=== PATIENT | female | born 1995 | race Caucasian/White ===

== ENCOUNTER 2019-06-10 23:29 | Emergency (ER) | payer OTHER ==
[~2019-06-10] VITALS: Ht 152.4 cm; Wt 103.0 kg
[~2019-06-10 23:29] MED LIST: AMOXICILLIN875 MG; BACTRIM DS TAB1 EACH PO; HYDROXYZINE PAM25 MG PO; NITROFURANTOIN100 MG PO; PROMETHAZINE HC25 M1 PO; RANITIDINE HCL75 MG PO; TRAZODONE HCL100 MG PO
--- OUTSIDE RECORDS SUMMARY | 2019-06-10 23:32 | XMS ---
PreManage Notification: CAMMIE PETERSEN Security Wharf Tally Clerk Events No recent Security Events currently on file CRITERIA MET - Group Notification - 6 ED Visits in 6 Months - [facility] - Has Care Guidelines - [facility] - 2 Visits in 30 Days CARE PROVIDERS HÉCTOR MENDOSA Counselor: Mental Health Current PHONE: [phone] INDY CLEMENS Counselor: Mental Health 09/13/2018-Current PHONE: [phone] COBY RODRIGUEZ Psychiatry \T\ Neurology: Psychiatry Current PHONE: Unknown Merced Flores Counselor: Mental Health 05/26/2017-Current PHONE: [phone] JESSICA Marin [facility] 01/18/2018-Current PHONE: Unknown MICHELLE BRADY Primary Care [facility] PHONE: Unknown [facility] Primary Care [facility] HEALTH PHONE: Unknown HÉCTOR MENDOSA Primary Care Current PHONE: Unknown Faizan Fernandez or Director Diabetes Current PHONE: [phone] COBY RODRIGUEZ Primary Care Current PHONE: Unknown JESSICA [facility] 01/18/2018-Current PHONE: Unknown Jeremy Shaver Primary Care Current PHONE: Unknown Merced Flores Primary Care 05/26/2017-Current PHONE: [phone] Guidelines Source: [facility] Wellness Guidelines Date: 09/15/2018 Care Recommendation: Client has a diagnosis of Borderline Personality Disorder, Major Depressive Disorder, with psychotic features, and PTSD. She reports that being locked in a room escalates her symptoms when she is already anxious and overwhelmed.\T\nbsp; She reports that she is not a risk to herself or others if she is in the hospital setting, as that is where she feels the most safe when in crisis or in need of medical care.\T\nbsp; She reports that it is helpful to be patient with her, slow down and communicate each step of the process.\T\nbsp; Care Coordination: She would like [facility] staff at [phone] and her sister Stefanie Walsh at [phone] and her mom: Yenifer Cain at [phone] Pain Management: She can not think of anything medication hernadez that is helpful or could be helpful for pain management. Heat and Ice can be helpful for pain management depending on the need.\T\nbsp; Care History Social 06/01/2018 [facility] Cammie is estranged from her and lost custody of her daughter whom she has not seen in a long time.\T\nbsp; Sadness around this has caused her to present to the ED feeling suicidal. Behavioral 06/01/2018 [facility] Presented to ED on crisis 7 times in 8 months.\T\nbsp; Hospitalized at least 2 of those times Frequent suicidal ideation and gestures E.D. VISIT COUNT (12 MO.) [address] TOTAL 10 NOTE: Visits indicate total known visits. ED/UCC VISIT TRACKING (12 MO.) 06/10/2019 23:30 [facility] [place] TYPE: Emergency COMPLAINT: - MEDICATION ISSUE 06/03/2019 03:22 [facility] [place] TYPE: Emergency COMPLAINT: - DIFFICULTY BREATHING DIAGNOSES: - Other sales promotion officer (current) drug therapy - Dyspnea, unspecified - Major depressive disorder, single episode, unspecified - Allergy status to other antibiotic agents status - Shortness of breath 05/27/2019 19:14 [facility] [place] TYPE: Emergency COMPLAINT: - URINE PROBLEM DIAGNOSES: - Dysuria - Cough - Allergy status to other antibiotic agents status - Urinary tract infection, site not specified 04/10/2019 22:20 [facility] [place] TYPE: Emergency DIAGNOSES: - Acute cystitis without hematuria - LUNG AND KIDNEY PAIN 03/12/2019 12:28 [facility] [place] TYPE: Emergency DIAGNOSES: - Cellulitis of face - eye infection [facility]2019 [facility] DIAGNOSES: - Noninfective gastroenteritis and colitis, unspecified - Fever (9 Weeks To 74 Years) 09/30/2018 18:24 [facility] [place] TYPE: Emergency DIAGNOSES: - Ankle Pain - Pain in right ankle and joints of right foot - Other chronic pain - Headache (Adult - New Onset Or New Symptoms) 09/22/2018 19:18 [facility] [place] TYPE: Emergency DIAGNOSES: - Suicidal Thoughts - Suicidal ideations 09/13/2018 13:21 [facility] [place] TYPE: Emergency DIAGNOSES: - Pruritis - Rash and other nonspecific skin eruption - itchy and achey - Generalized Body Aches 06/13/2018 18:16 [facility] [place] TYPE: Emergency DIAGNOSES: - Skin Lesion - Cellulitis of chest wall - Spider Bite INPATIENT VISIT TRACKING (12 MO.) No inpatient visits to display in this time frame [email or web address]
[2019-06-10] MEDS ORDERED: LEXAPRO10 MG PO (23:50)
[2019-06-10] MEDS ORDERED: OMEPRAZOLE20 MG PO (23:51)
== END 2019-06-11 00:46 | disposition home or self-care (01) ==
LOC: ED 23:29
DX: F32.9 Major depressive disorder, single episode, unspecified (principal); F41.9 Anxiety disorder, unspecified; Z88.1 Allergy status to other antibiotic agents; Z79.899 Other long term (current) drug therapy
CPT/HCPCS: 99283

== ENCOUNTER 2019-06-14 15:47 | Emergency (ER) | payer OTHER ==
[~2019-06-14] VITALS: Ht 152.4 cm; Wt 103.0 kg
[~2019-06-14 15:47] MED LIST changes: +LEXAPRO10 MG PO; +OMEPRAZOLE20 MG PO
--- OUTSIDE RECORDS SUMMARY | 2019-06-14 15:52 | XMS ---
PreManage Notification: CAMMIE PETERSEN Security Food Services Coordinator Events No recent Security Events currently on file CRITERIA MET - 6 ED Visits in 6 Months - [facility] - Has Care Guidelines - [facility] - 2 Visits in 30 Days CARE PROVIDERS HÉCTOR MENDOSA Counselor: Mental Health Current PHONE: [phone] LYLA VILLATORO Nurse Practitioner: Family 06/12/2019-Current PHONE: Unknown INDY CLEMENS Counselor: Mental Health 09/13/2018-Current PHONE: [phone] COBY RODRIGUEZ Psychiatry \T\ Neurology: Psychiatry Current PHONE: Unknown Merced Flores Counselor: Mental Health 05/26/2017-Current PHONE: [phone] JESSICA Marin [facility] 01/18/2018-Current PHONE: Unknown MICHELLE COLON [facility] PHONE: Unknown [facility] Primary Care [facility] PHONE: Unknown HÉCTOR MENDOSA [facility] Current PHONE: Unknown Faizan Fernandez or Marketing And Communications Officer Current PHONE: [phone] JESSICA [facility] 01/18/2018-Current PHONE: Unknown Jeremy Shaver Primary Care Current PHONE: Unknown Merced Flores Primary Care 05/26/2017-Current PHONE: [phone] Guidelines Source: [facility] Wellness Guidelines Date: 09/15/2018 Care Recommendation: Client [...] the process.\T\nbsp; Care Coordination: She would like [facility] staff at [phone] and her sister Stefanie Walsh at [phone] and her mom: Yenifer Cain at [phone] Pain Management: She can not think of anything medication hernadez that is helpful or could be helpful for pain management. Heat and Ice can be helpful for pain management depending on the need.\T\nbsp; Care History Behavioral 06/01/2018 [facility] Presented to ED on crisis 7 times in 8 months.\T\nbsp; Hospitalized at least 2 of those times Frequent suicidal ideation and gestures Social 06/01/2018 [facility] Cammie is estranged from her and lost custody of her daughter whom she has not seen in a long time.\T\nbsp; Sadness around this has caused her to present to the ED feeling suicidal. Natalya. VISIT COUNT (12 MO.) [address] TOTAL 10 NOTE: Visits indicate total known visits. ED/UCC VISIT TRACKING (12 MO.) 06/14/2019 15:49 [facility] [place] TYPE: Emergency COMPLAINT: - HEAD INJURY 06/10/2019 23:30 [facility] [place] TYPE: Emergency COMPLAINT: - MEDICATION ISSUE DIAGNOSES: - Anxiety disorder, unspecified - Allergy status to other antibiotic agents status - Other terminal operations supervisor (current) drug therapy - Major depressive disorder, single episode, unspecified 06/03/2019 03:22 [facility] [place] TYPE: Emergency COMPLAINT: - DIFFICULTY BREATHING DIAGNOSES: - Other alf (current) drug therapy - Dyspnea, unspecified - Major depressive disorder, single episode, unspecified - Allergy status to other antibiotic agents status - Shortness of breath 05/27/2019 19:14 [facility] [place] TYPE: Emergency COMPLAINT: - URINE PROBLEM DIAGNOSES: - Dysuria - Cough - Allergy status to other antibiotic agents status - Urinary tract infection, site not specified 04/10/2019 22:20 [facility] [place] TYPE: Emergency DIAGNOSES: - Acute cystitis without hematuria - LUNG AND KIDNEY PAIN 03/12/2019 12:28 [facility] [employer] [employer] [place] TYPE: Emergency DIAGNOSES: - Cellulitis of face - eye infection 01/28/2019 15:52 [facility] [employer] [place] TYPE: Emergency DIAGNOSES: - Noninfective gastroenteritis and colitis, unspecified - Fever (9 Weeks To 74 Years) 09/30/2018 18:24 [facility] [employer] [place] TYPE: Emergency DIAGNOSES: - Ankle Pain - Pain in right ankle and joints of right foot - Other chronic pain - Headache (Adult - New Onset Or New Symptoms) 09/22/2018 19:18 [facility] [employer] [place] TYPE: Emergency DIAGNOSES: - Suicidal Thoughts - Suicidal ideations 09/13/2018 13:21 [facility] [employer] [place] TYPE: Emergency DIAGNOSES: - Pruritis - Rash and other nonspecific skin eruption - itchy and achey - Generalized Body Aches INPATIENT VISIT TRACKING (12 MO.) No inpatient visits to display in this time frame [id number]
[2019-06-14] MEDS ORDERED: CYCLOBENZAPRINE10 MG PO (16:51)
== END 2019-06-14 17:03 | disposition home or self-care (01) ==
LOC: ED 15:47
DX: S06.0X1A Concussion with loss of consciousness of 30 minutes or less, initial encounter (principal); S16.1XXA Strain of muscle, fascia and tendon at neck level, initial encounter; V43.52XA Car driver injured in collision with other type car in traffic accident, initial encounter; F41.9 Anxiety disorder, unspecified; F43.10 Post-traumatic stress disorder, unspecified; Z88.1 Allergy status to other antibiotic agents; Z79.899 Other long term (current) drug therapy
CPT/HCPCS: 99283

== ENCOUNTER 2019-06-16 17:15 | Emergency (ER) | payer OTHER ==
[~2019-06-16] VITALS: Ht 152.4 cm; Wt 103.0 kg
[~2019-06-16 17:15] MED LIST changes: +CYCLOBENZAPRINE10 MG PO
--- OUTSIDE RECORDS SUMMARY | 2019-06-16 17:18 | XMS ---
PreManage Notification: CAMMIE PETERSEN Security Customer Service Specialist Events No recent Security Events currently on file CRITERIA MET - Group Notification - 6 ED Visits in 6 Months - [facility] - Has Care Guidelines - [facility] - 2 Visits in 30 Days CARE PROVIDERS HÉCTOR MENDOSA Counselor: Mental Health Current PHONE: [phone] LYLA VILLATORO Nurse Practitioner: Family 06/12/2019-Current PHONE: Unknown INDY CLEMENS Counselor: Mental Health 09/13/2018-Current PHONE: [phone] COBY RODRIGUEZ Psychiatry \T\ Neurology: Psychiatry Current PHONE: Unknown Merced Flores Counselor: Mental Health 05/26/2017-Current PHONE: [phone] JESSICA Marin [facility] 01/18/2018-Current PHONE: Unknown MICHELLE OBRIEN [facility] PHONE: Unknown [facility] Primary [facility] PHONE: Unknown HÉCTOR MENDOSA [facility] Current PHONE: Unknown Faizan Fernandez or Desk Pen Set Assembler Current PHONE: [phone] JESSICA [facility] 01/18/2018-Current PHONE: Unknown Jeremy Shaver Primary Care Current PHONE: Unknown Merced Flores Primary Care 05/26/2017-Current PHONE: [phone] Guidelines Source: [facility] Wellness Guidelines Date: 09/15/2018 Care Recommendation: Client [...] the process.\T\nbsp; Care Coordination: She would like [facility] staff at [phone] and her sister Stefanie Walsh at [phone] and her mom: Yenifer Cain at [phone] Pain Management: She can not think of anything medication hernadez that is helpful or could be helpful for pain management. Heat and Ice can be helpful for pain management depending on the need.\T\nbsp; Care History Behavioral 06/15/2019 [facility] PLEASE RUN A DRUG SCREEN IF PATIENT PRESENTS TO ED AGAIN 06/01/2018 [facility] Presented to ED on crisis 7 times in 8 months.\T\nbsp; Hospitalized at least 2 of those times Frequent suicidal ideation and gestures Social 06/01/2018 [facility] Cammie is estranged from her and lost custody of her daughter whom she has not seen in a long time.\T\nbsp; Sadness around this has caused her to present to the ED feeling suicidal. E.D. VISIT COUNT (12 MO.) 5 [facility] 1 [facility] 5 [facility] TOTAL 11 NOTE: Visits indicate total known visits. ED/UCC VISIT TRACKING (12 MO.) 06/16/2019 17:16 [facility] [place] TYPE: Emergency COMPLAINT: - FOLLOWUP- HEAD INJURY 06/14/2019 15:49 [facility] [place] TYPE: Emergency COMPLAINT: - HEAD INJURY 06/10/2019 23:30 [facility] [place] TYPE: Emergency COMPLAINT: - MEDICATION ISSUE DIAGNOSES: - Anxiety disorder, unspecified - Allergy status to other antibiotic agents status - Other jail (current) drug therapy - Major depressive disorder, single episode, unspecified 06/03/2019 03:22 [facility] [place] TYPE: Emergency COMPLAINT: - DIFFICULTY BREATHING DIAGNOSES: - Other jail (current) drug therapy - Dyspnea, unspecified - Major depressive disorder, single episode, unspecified - Allergy status to other antibiotic agents status - Shortness of breath 05/27/2019 19:14 [facility] [place] TYPE: Emergency COMPLAINT: - URINE PROBLEM DIAGNOSES: - Dysuria - Cough - Allergy status to other antibiotic agents status - Urinary tract infection, site not specified 04/10/2019 22:20 [facility] [place] TYPE: Emergency DIAGNOSES: - Acute cystitis without hematuria - LUNG AND KIDNEY PAIN 03/12/2019 12:28 [facility] [place] TYPE: Emergency DIAGNOSES: - Cellulitis of face - eye infection 01/28/2019 15:52 [facility] [place] TYPE: Emergency DIAGNOSES: - Noninfective gastroenteritis and colitis, unspecified - Fever (9 Weeks To 74 Years) 09/30/2018 18:24 [facility] [place] TYPE: Emergency DIAGNOSES: - Ankle Pain - Pain in right ankle and joints of right foot - Other chronic pain - Headache (Adult - New Onset Or New Symptoms) 09/22/2018 19:18 [facility] [place] TYPE: Emergency DIAGNOSES: - Suicidal Thoughts - Suicidal ideations 09/13/2018 13:21 [facility] [place] TYPE: Emergency DIAGNOSES: - Pruritis - Rash and other nonspecific skin eruption - itchy and achey - Generalized Body Aches INPATIENT VISIT TRACKING (12 MO.) No inpatient visits to display in this time frame [email or web address]
== END 2019-06-16 22:29 | disposition home or self-care (01) ==
LOC: ED 17:15
DX: S06.0X0D Concussion without loss of consciousness, subsequent encounter (principal); F32.9 Major depressive disorder, single episode, unspecified; F41.9 Anxiety disorder, unspecified; Z79.899 Other long term (current) drug therapy
CPT/HCPCS: 70450; 99284-25

== ENCOUNTER 2019-08-11 20:34 | Emergency (ER) | payer OTHER ==
[~2019-08-11] VITALS: Ht 152.4 cm; Wt 103.0 kg
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
== END 2019-08-12 00:09 | disposition home or self-care (01) ==
LOC: ED 20:34
DX: J06.9 Acute upper respiratory infection, unspecified (principal); F99 Mental disorder, not otherwise specified; F32.9 Major depressive disorder, single episode, unspecified; F41.9 Anxiety disorder, unspecified; Z88.1 Allergy status to other antibiotic agents; Z79.899 Other long term (current) drug therapy
CPT/HCPCS: 80053; 80176; 81001; 84443; 84703; 85025; 99285; G0480

== ENCOUNTER 2020-05-11 17:06 | Emergency (ER) | payer MEDICAID ==
[~2020-05-11] VITALS: Ht 152.4 cm; Wt 104.3 kg
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
[2020-05-11] MEDS ORDERED: CAPZASIN-HP42.5 GM TOP (17:21)
[2020-05-11] MEDS ORDERED: PRAZOSIN HCL2 MG PO (17:21)
[2020-05-11] MEDS ORDERED: VENLAFAXINE HC150 M1 PO (17:21)
[2020-05-11] MEDS ORDERED: PRENATAL TABLE1 EAC1 PO (17:22)
== END 2020-05-11 18:45 | disposition home or self-care (01) ==
LOC: ED 17:06
DX: O9A.211 Injury, poisoning and certain other consequences of external causes complicating pregnancy, first trimester (principal); S00.86XA Insect bite (nonvenomous) of other part of head, initial encounter; O99.341 Other mental disorders complicating pregnancy, first trimester; F31.9 Bipolar disorder, unspecified; F41.9 Anxiety disorder, unspecified; F43.10 Post-traumatic stress disorder, unspecified; F20.9 Schizophrenia, unspecified; Z88.1 Allergy status to other antibiotic agents; Z79.899 Other long term (current) drug therapy; W57.XXXA Bitten or stung by nonvenomous insect and other nonvenomous arthropods, initial encounter; Z3A.14 14 weeks gestation of pregnancy
CPT/HCPCS: 99282

== ENCOUNTER 2021-01-03 23:03 | Emergency (ER) | payer OTHER ==
[~2021-01-03] VITALS: Ht 152.4 cm; Wt 85.3 kg
[~2021-01-03 23:03] MED LIST changes: +CAPZASIN-HP42.5 GM TOP; +PRAZOSIN HCL2 MG PO; +PRENATAL TABLE1 EAC1 PO; +VENLAFAXINE HC150 M1 PO
--- OUTSIDE RECORDS SUMMARY | 2021-01-03 23:06 | XMS ---
PreManage Notification: CAMMIE PETERSEN Security Case Sealer Events No recent Security Events currently on file CRITERIA MET - [facility] [place] CARE PROVIDERS LYLA VILLATORO Nurse Practitioner: Family 06/12/2019-Current PHONE: Unknown CARO SOLOMON Nurse Practitioner 01/22/2017-Current PHONE: Unknown Merced Flores Counselor: Mental Health 05/26/2017-Current PHONE: [phone] NIEVES LOPEZ Instructional Leader 01/18/2018-Current PHONE: Unknown Guidelines Source: Filipporiley Saenz Guidelines Date: 08/14/2019 Care Coordination: Receives mental health services with [facility].\T\nbsp; Please contact [facility] for any mental health concerns.\T\nbsp; Hiwot/Parker Quinnshane: [phone]\ T\nbsp; Linnea: [phone]. Additional care guidelines exist for the following facilities: [facility] ( 03/18/2020 ) Care History Behavioral 06/15/2019 [facility] PLEASE RUN A DRUG SCREEN IF PATIENT PRESENTS TO ED AGAIN 06/01/2018 [facility] Presented to ED on crisis 7 times in 8 months.\T\nbsp; Hospitalized at least 2 of those times Frequent suicidal ideation and gestures Medical/Surgical 08/14/2019 [facility] - [facility] NOTIFIED\T\nbsp; OF PATIENT URGENCY TO ESTABLISH CARE WITH A PROVIDER. - ED CONSULT RECEIVED TO HELP PATIENT WITH ESTABLISHING CARE WITH A PROVIDER. 06/20/2019 [facility] CASE MANAGEMENT REFERRAL MADE- PATIENT HAS [facility] AND NO PCP. Social 06/01/2018 [facility] Cammie is estranged from her and lost custody of her daughter whom she has not seen in a long time.\T\nbsp; Sadness around this has caused her to present to the ED feeling suicidal. E.D. VISIT COUNT (12 MO.) [address] [facility] TOTAL 2 NOTE: Visits indicate total known visits. ED/UCC VISIT TRACKING (12 MO.) 01/03/2021 23:04 [facility] TYPE: Emergency COMPLAINT: - ABDOM PAIN 05/11/2020 17:07 [facility] TYPE: Emergency COMPLAINT: - POSSIBLE SPIDE BITE DIAGNOSES: - Allergy status to other antibiotic agents - Other lobsterman (current) drug therapy - Anxiety disorder, unspecified - Bipolar disorder, unspecified - Schizophrenia, unspecified - Post-traumatic stress disorder, unspecified - Bitten or stung by nonvenomous insect and other nonvenomous arthropods, initial encounter - 14 weeks gestation of - Injury, poisoning and certain other consequences of external causes complicating , first trimester - Other mental disorders complicating , first trimester - Other specified diseases and conditions complicating , childbirth and the puerperium - Insect bite (nonvenomous) of other part of head, initial encounter INPATIENT VISIT TRACKING (12 MO.) 11/02/2020 10:30 [facility] TYPE: Obstetrics DIAGNOSES: - Encounter for supervision of normal , unspecified, unspecified trimester [email or web address]
[2021-01-04] MEDS ORDERED: PROTONIX40 MG PO (01:17)
[2021-01-04] MEDS ORDERED: ZOFRAN4 MG PO (01:17)
== END 2021-01-04 01:44 | disposition home or self-care (01) ==
LOC: ED 23:03
DX: K80.20 Calculus of gallbladder without cholecystitis without obstruction (principal); Z88.1 Allergy status to other antibiotic agents; Z79.899 Other long term (current) drug therapy
CPT/HCPCS: 71046; 74177; 96374; 99284-25; J2405; J7030; Q9967

== ENCOUNTER 2021-01-19 02:55 | Emergency (ER) | payer OTHER ==
[~2021-01-19] VITALS: Ht 152.4 cm; Wt 85.3 kg
[~2021-01-19 02:55] MED LIST changes: +PROTONIX40 MG PO; +ZOFRAN4 MG PO
--- OUTSIDE RECORDS SUMMARY | 2021-01-19 02:58 | XMS ---
PreManage Notification: CAMMIE PETERSEN Security House Servant Events No recent Security Events currently on file CRITERIA MET - [facility] - Has Care Guidelines - [facility] - 2 Visits in 30 Days CARE PROVIDERS LYLA VILLATORO Nurse Practitioner: 06/12/2019-Current PHONE: Unknown CARO SOLOMON Nurse Practitioner 01/22/2017-Current PHONE: Unknown Merced Flores Counselor: Mental Health 05/26/2017-Current PHONE: [phone] NIEVES LOPEZ Wire Stretcher 01/18/2018-Current PHONE: Unknown [facility] Saenz Guidelines Date: 08/14/2019 Care Coordination: Receives mental health services with [facility].\T\nbsp; Please contact [facility] for any mental health concerns.\T\nbsp; Hiwot/Parker Hobson: [phone]\ T\nbsp; Linnea: [phone]. Additional care guidelines exist for the following facilities: [facility] ( 03/18/2020 ) Care History Medical/Surgical 08/14/2019 [facility] NOTIFIED\T\nbsp; OF PATIENT URGENCY TO ESTABLISH CARE WITH A PROVIDER. - ED CONSULT RECEIVED TO HELP PATIENT WITH ESTABLISHING CARE WITH A PROVIDER. 06/20/2019 [facility] CASE MANAGEMENT REFERRAL MADE- PATIENT HAS [facility] AND NO PCP. Behavioral 06/15/2019 [facility] Care Recommendation: - PLEASE REVIEW PDMP - JONAS - USE EXTREME CAUTION IN GIVING NARCOTICS. - Avoid Discharge Narcotic prescriptions if at all possible. Physician discretion. 06/01/2018 [facility] Presented to ED on crisis 7 times in 8 months.\T\nbsp; Hospitalized at least 2 of those times Frequent suicidal ideation and gestures Social 06/01/2018 [facility] Cammie is estranged from her and lost custody of her daughter whom she has not seen in a long time.\T\nbsp; Sadness around this has caused her to present to the ED feeling suicidal. E.D. VISIT COUNT (12 MO.) 3 [facility] TOTAL 3 NOTE: Visits indicate total known visits. ED/UCC VISIT TRACKING (12 MO.) 01/19/2021 02:56 [facility] TYPE: Emergency COMPLAINT: - VOMITING, COLD SWEATS, CONSTIPATION 01/03/2021 23:04 [facility] TYPE: Emergency COMPLAINT: - ABDOM PAIN DIAGNOSES: - Calculus of gallbladder without cholecystitis without obstruction - Other detention (current) drug therapy - Unspecified abdominal pain - Allergy status to other antibiotic agents 05/11/2020 17:07 [facility] TYPE: Emergency COMPLAINT: - POSSIBLE SPIDE BITE DIAGNOSES: - Allergy status to other antibiotic agents - Other detention (current) drug therapy - Anxiety disorder, unspecified [...] supervision of normal , unspecified, unspecified trimester [email or web address]
== END 2021-01-19 05:32 | disposition home or self-care (01) ==
LOC: ED 02:55
DX: K80.20 Calculus of gallbladder without cholecystitis without obstruction (principal); Z88.1 Allergy status to other antibiotic agents
CPT/HCPCS: 76705; 80053; 81001; 83690; 84703; 85025; 99284-25; J2405; J7030

== ENCOUNTER 2021-03-14 06:30 | Day surgery (SDC) | payer OTHER ==
[~2021-03-14] VITALS: Ht 152.4 cm; Wt 87.3 kg
[~2021-03-14 06:30] MED LIST changes: +PRENA1 CHEW TA1.4 MG PO
--- NOTE | 2021-03-14 07:59 | NUR ---
PT TAKEN TO OR, CONNECTED WITH WAITING IN RM. HE LOOKED A LITTLE BEWILDERED, ASKED FOR DIRECTIONS TO PARKING LOT. GAVE HIM DIRECTIONS AND ENCOURAGEMENT. WILL FOLLOW
--- NOTE | 2021-03-14 08:52 | NUR ---
03/14/21 0852 Anabell Boone 0847: PT ARRIVES TO PACU FOR RECOVERY VIA STRETCHER. NON AROUSABLE ON ARRIVAL WITH OPA IN PLACE. VSS, RESP EVEN AND UNLABORED. O2 SAT STABLE >98% ON 6L VIA FACEMASK. DRESSING C/D/I X3. ICE PACK TO SITE. SCDS IN PLACE
--- NOTE | 2021-03-14 09:54 | NUR ---
0961 PT UP TO BEDSIDE COMMOD WITH MINIMAL HELP. SHE WAS ABLE TO VOID 450ML OF CLEAR YELLOW URINE, SHE REPORTS SHE IS SORE BUT "NOTHING BIG". SHE STATES SHE IS REALLY TIRED AND WANTS TO SLEEP. I TOLD HER SHE CAN SLEEP FOR A WHILE TO LET ANESTHESIA WEAR OFF.
--- NOTE | 2021-03-14 09:57 | NUR ---
0976 PT HELPED BACK INTO BED WITH MINIMAL ASSIST. HER AT BEDSIDE. CALL LIGHT WITHIN PT REACH.
--- NOTE | 2021-03-14 11:05 | NUR ---
1000 PT EATING CRACKERS AND APPLESAUCE TOLERATES WELL. SHE IS ASKING WHEN SHE CAN GO HOME SHE REPORTS SHE FEELS FINE SHE IS JUST VERY TIRED AND WANTS TO GO HOME TO SLEEP. ADVISED PT SHE HAS TO STAY FOR A LITTLE WHILE LONGER. 1045 PT WALKER TO BATHROOM WITH MINIMAL ASSIST. SHE WAS ABLE TO VOID. REPORTS SHE IS HAVING PAIN BUT NOT ENOUGH FOR PAIN PILLS SHE ASKED FOR TYLENOL. CALLED DR NICHOLSON FOR ORDER AND GAVE 1000MG PO. DISCHARGE INSTRUCTIONS GIVEN TO PT AND BOTH VOICED UNDERSTANDING
--- NOTE | 2021-03-16 09:05 | OR ---
[facility] [address], [place] [address] Signed DATE OF OPERATION: 03/14/2021 SURGEON: Abram Nicholson MD PREOPERATIVE DIAGNOSES: Cholecystitis with cholelithiasis. POSTOPERATIVE DIAGNOSES: 1. Cholecystitis with cholelithiasis. 2. Cholesterolosis. PROCEDURE: Laparoscopic cholecystectomy with intraoperative cholangiogram. ESTIMATED BLOOD LOSS: None. FINDINGS: The intraoperative cholangiogram was unremarkable. She had multiple small stones and cholesterolosis. INDICATIONS: Cammie is a 25-year-old female with a body mass index of 38. She has been in our emergency room twice with right upper quadrant abdominal pain and epigastric abdominal pain. She said it is worse after she eats. It started around 3-4 months after the of her 2nd child. She has to curl up in bed sometimes until the pain passes. At one time, the liver function tests were slightly elevated. Ultrasound showed multiple mobile stones without any obvious cholecystitis. Common bile duct was unremarkable. She had been to her primary care provider. She was then asked to see me with respect to the above. I met with Cammie and her in the office. I gave them a brochure on the gallbladder. We have discussed the location and function of the gallbladder. We discussed laparoscopic versus open cholecystectomy. They understand the expected intraop and postop course. There is risk of surgery including, but not limited to bleeding, infection, scarring, change in contour of the skin, damage to bowel, damage to main bile duct, incisional hernias and other unforeseen comorbidities. They had expressed understanding and wished to proceed. PROCEDURE NOTE: I met with Cammie and her in the preop area. After this, she was taken to the operating room and placed in the supine position under general endotracheal tube Electronically Signed By: ABRAM NICHOLSON MD 03/16/21 0905 PATIENT NAME: CAMMIE PETERSEN OPERATIVE REPORT DATE OF : [birth year] REPORT #: [id number] PHYSICIAN: ABRAM NICHOLSON MD PCP: LIZBET MG PA-C REPORT IS CONFIDENTIAL AND NOT TO BE RELEASED WITHOUT AUTHORIZATION [facility] [address] [place], [place] [address] Signed anesthesia. She was given preoperative antibiotics along with subcutaneous heparin. SCDs were utilized. She was then prepped and draped in the usual sterile fashion. All trocars were placed in usual positions under direct visualization of camera without difficulty. Pictures were taken throughout for photodocumentation. The gallbladder was grasped and elevated in the right upper quadrant. She had chronic inflammatory changes with the surrounding fat adherent to her gallbladder from the top all the way down to the triangle of Calot. It took a few minutes with the help of the cautery and blunt dissection to free up the gallbladder from all the surrounding fat. The triangle of Calot was then dissected free. It took a few minutes because of the chronic inflammatory changes. The clip had been placed across the cystic artery and it had been divided. The intraoperative cholangiocatheter was then inserted into the cystic duct. The intraoperative cholangiogram was then performed. This was unremarkable. The cystic duct stump was secured with a PDS Endoloop and a clip was placed across the cystic duct stump to karma its location. After this, the gallbladder was removed from the gallbladder fossa with the help of the cautery and placed into an EndoCatch bag. We then used our laparoscopic suturing device to pass 0-Vicryl suture on either side of the fascia of the subxiphoid trocar site. This was tied down to close this fascia primarily. After this, all the gas was allowed to escape and all the trocars were removed. We closed the fascia of the supraumbilical trocar site with interrupted [id number] and simple 0-Vicryl sutures. Local anesthetic was injected in all trocar sites. The skin and dermis of each trocar site were closed with interrupted 3-0 subcuticular Monocryl sutures. Dry gauze and tape were applied to all incisions. After this, Cammie was awakened from her anesthesia, extubated in the OR, and taken to recovery room in stable condition. Abram Nicholson MD ALB/MODL /[id number] cc: MD Lizbet Washburn PA Copies: ABRAM NICHOLSON MD Electronically Signed By: ABRAM NICHOLSON MD 03/16/21 0905 PATIENT NAME: CAMMIE PETERSEN OPERATIVE REPORT DATE OF : [birth year] REPORT #: [id number] PHYSICIAN: ABRAM NICHOLSON MD PCP: LIZBET MG PA-C REPORT IS CONFIDENTIAL AND NOT TO BE RELEASED WITHOUT AUTHORIZATION [address] [address] Signed ~ Electronically Signed By: ABRAM NICHOLSON MD 03/16/21 0905 PATIENT NAME: CAMMIE PETERSEN OPERATIVE REPORT DATE OF : [birth year] REPORT #: [id number] PHYSICIAN: ABRAM NICHOLSON MD PCP: LIZBET MG PA-C REPORT IS CONFIDENTIAL AND NOT TO BE RELEASED WITHOUT AUTHORIZATION
--- NOTE | 2021-03-19 12:06 | PATH ---
[facility] [address] [place], [place] [address] Signed SPECIMEN(S): A GALLBLADDER AND STONES SPECIMEN SOURCE: A. GALLBLADDER AND STONES CLINICAL HISTORY: Laparoscopic cholecystectomy. Symptomatic cholelithiasis, calculous of gallbladder with acute and chronic cholecystitis and obstruction. FINAL PATHOLOGIC DIAGNOSIS: Gallbladder, cholecystectomy: - Chronic cholecystitis with cholesterolosis. - Cholelithiasis. NAL:cml:C2NR MICROSCOPIC EXAMINATION: Histologic sections of all submitted blocks are examined by light microscopy. These findings, together with the gross examination, support the pathologic diagnosis. GROSS DESCRIPTION: The specimen, labeled "SR, gallbladder," is received in formalin and consists of Specimen: Previously opened gallbladder. Dimensions: 5.5 cm in length and 4.8 cm in inner circumference. Serosa: Violaceous and smooth. Cystic Duct: Unobstructed. Calculi: Several yellow gallstones within the container that range in size from 0.1-0.3 cm in greatest dimension. Mucosa: Green and velvety with yellow flecking. Wall thickness: 0.6 cm. Lymph node: No pericystic lymph nodes are grossly identified. Additional: None. Rehabilitation Supervisor sections are submitted in cassette (A1). JS (under the direct supervision of a pathologist) The Gross Description was prepared using a voice recognition system. The report was reviewed for accuracy; however, sound-alike word errors, addition and/or deletions may occur. If there is any question about this report, please contact Client Services. PERFORMING LABORATORY: PATIENT NAME: TRINITYTAL KIRBY PATHOLOGY DATE OF : [birth year] REPORT #: [id number] PHYSICIAN: MAX SEBASTIAN PCP: LIZBET MG PA-C REPORT IS CONFIDENTIAL AND NOT TO BE RELEASED WITHOUT AUTHORIZATION [facility] [address] [place] [address] Signed The technical component was [place] [address] (Pricing Clerk: Melissa Turner MD; CLIA# [id number]). Professional [facility], [address] [address] (CLIA# [id number]). Diagnostician: Monika [place] MD Pathologist Electronically Signed 03/19/2021 Copies: ~ PATIENT NAME: TAL PETERSEN PATHOLOGY DATE OF : [birth year] REPORT #: [id number] PHYSICIAN: MAX SEBASTIAN PCP: LIZBET MG PA-C REPORT IS CONFIDENTIAL AND NOT TO BE RELEASED WITHOUT AUTHORIZATION
== END 2021-03-14 11:00 | disposition home or self-care (01) ==
LOC: DS 06:30
PROVIDERS: ATTEND Colon & Rectal Surgery
PROC: BF03YZZ Plain Radiography of Gallbladder and Bile Ducts using Other Contrast (ICD-10-PCS; 2021-03-14)
PROC: 0FT44ZZ Resection of Gallbladder, Percutaneous Endoscopic Approach (ICD-10-PCS; principal; 2021-03-14 06:45)
DX: K80.10 Calculus of gallbladder with chronic cholecystitis without obstruction (principal); K21.9 Gastro-esophageal reflux disease without esophagitis; E66.9 Obesity, unspecified; Z68.38 Body mass index [BMI] 38.0-38.9, adult; Z88.1 Allergy status to other antibiotic agents
CPT/HCPCS: 00790; 74300; 88304; J0330; J0690; J1100; J1644; J1885; J2001; J2250; J2405; J2704; J7121; Q9967

== ENCOUNTER 2022-12-19 20:11 | Emergency (ER) | payer OTHER ==
[~2022-12-19] VITALS: Ht 152.4 cm; Wt 115.1 kg
== END 2022-12-19 21:11 | disposition home or self-care (01) ==
LOC: ED 20:11
DX: O20.9 Hemorrhage in early pregnancy, unspecified (principal); Z3A.14 14 weeks gestation of pregnancy; Z88.1 Allergy status to other antibiotic agents; Z79.899 Other long term (current) drug therapy
CPT/HCPCS: 36415; 84702; 85025; 86900; 86901; 99284

== ENCOUNTER 2023-06-23 04:26 | Emergency (ER) | payer OTHER ==
[~2023-06-23] VITALS: Ht 152.4 cm; Wt 104.3 kg
--- OUTSIDE RECORDS SUMMARY | ~2023-06-23 | XMS | Continuity of Care Document ---
Demographics + + + | Address | [address] | | | [place] [address] | + + + | Preferred Language | Unknown | + + + | Marital Status | | + + + | Sabianist Affiliation | Unknown | + + + | Race | White | + + + | Ethnic Group | Not or | + + + Author + + + | Author | [place] | + + + | Organization | [facility] | + + + | Address | [address] | | | [place] [address] | + + + | Phone | | + + + Care Team Providers + + + + | Care Com Writer Name | Role | Phone | + + + + Unavailable | Unavailable | + + + + Unavailable | Unavailable | + + + + Unavailable | Unavailable | + + + + Unavailable | Unavailable | + + + + Allergies and Intolerances + + + + + + | date | description | facility | reaction | severity | + + + + + + | (no date) | Doxycycline | [facility] | (no reaction) | (no severity) | | | | [facility] | | | + + + + + + | (no date) | Urticaria | [facility] | (no reaction) | (no severity) | | | | [facility] [place] [facility] | | [facility] | | | | | | [facility] | | | + + + + + + | (no date) | Urticaria | Outpatient | (no reaction) | (no severity) | | | | Therapy at | | | | | | [facility] | | | + + + + + + | (no date) | DOXYCYCLINE | [facility] | (no reaction) | (no severity) | | | | at [place] | | | | | | [facility] | | | | | | [facility] | | | | | | Center | | | + + + + + + | (no date) | DOXYCYCLINE | Outpatient | (no reaction) | (no severity) | | | | Therapy at | | | | | | [facility] | | | + + + + + + | (no date) | DOXYCYCLINE | [facility] | (no reaction) | (no severity) | | | | at [place] | | | | | | [facility] | | | | | | [facility] | | | | | | Center | | | + + + + + + | (no date) | DOXYCYCLINE | Outpatient | (no reaction) | (no severity) | | | | Therapy at | | | | | | [facility] | | | + + + + + + | (no date) | DOXYCYCLINE | [facility] | (no reaction) | (no severity) | | | | at [place] | | | | | [facility] | | | | | | [facility] | | | | | | Center | | | + + + + + + | (no date) | DOXYCYCLINE | Outpatient | (no reaction) | (no severity) | | | | Therapy at | | | | | | [facility] | | | + + + + + + | (no date) | DOXYCYCLINE | [facility] | (no reaction) | (no severity) | | | | at [place] | | | | | | [facility] | | | | | | [facility] | | | | | | Center | | | + + + + + + | (no date) | DOXYCYCLINE | Outpatient | (no reaction) | (no severity) | | | | Therapy at | | | | | | [facility] | | | + + + + + + | (no date) | DOXYCYCLINE | [facility] | (no reaction) | (no severity) | | | | at [place] | | | | | | [facility] | | | | | | [facility] | | | | | | Center | | | + + + + + + | (no date) | DOXYCYCLINE | Outpatient | (no reaction) | (no severity) | | | | Therapy at | | | | | | [facility] | | | + + + + + + | (no date) | Doxycycline | [facility] | (no reaction) | (no severity) | | | | [facility] | | | [facility] | | | + + + + + + | (no date) | DOXYCYCLINE | [facility] | (no reaction) | (no severity) | | | | at [place] | | | | | | [facility] | | | [facility] | [facility] | | | | | | Center | | | + + + + + + | (no date) | DOXYCYCLINE | Outpatient | (no reaction) | (no severity) | | | | Therapy at | | | | | | [facility] | | | + + + + + + | (no date) | doxycycline | [facility] | (no reaction) | (no severity) | + + + + + + | (no date) | DOXYCYCLINE | [facility] | (no reaction) | (no severity) | | | | at [place] | | | | | | [facility] | | | [facility] | | Professional | | | | | | Center | | | + + + + + + | (no date) | DOXYCYCLINE | Outpatient | (no reaction) | (no severity) | | | | Therapy at | | | | | | [facility] | | | + + + + + + | (no date) | Doxycycline | [facility] | (no reaction) | (no severity) | | | | [facility] | | | + + + + + + | (no date) | NO ALLERGY | [facility] | (no reaction) | (no severity) | | | INFORMATION ON | Medical Center | | | | | FILE | Hospital | | | + + + + + + | (no date) | DOXYCYCLINE | [facility] | (no reaction) | (no severity) | | | | [facility] Center | | | | | | Hospital | | | + + + + + + | (no date) | DOXYCYCLINE | [facility] | (no reaction) | (no severity) | | | | [facility] Clinic | | | + + + + + + | (no date) | NO KNOWN | [facility] | (no reaction) | (no severity) | | | ALLERGIES | Medical Center | | | | | | Hospital | | | + + + + + + Encounters No information. Functional Status No information. Immunizations No information. Medications + + + + | date | description | facility | + + + + | 2021-01-04 00:00 | ONDANSETRON HCL | [facility] | + + + + | 2014-02-02 00:00 | NITROFURANTOIN | [facility] | | | MACROCRYSTAL | | + + + + | 2022-12-19 00:00 | OMEPRAZOLE | [facility] | + + + + | 2022-12-24 00:00 | citalopram 10 mg (as | [facility] [place] | | | citalopram hbr 12.49 mg) | [facility] | | | oral tablet | | + + + + | 2023-02-26 00:00 | citalopram 10 mg (as | Outpatient Therapy at | | | citalopram hbr 12.49 mg) | [facility] | | | oral tablet | | + + + + | 2021-01-04 00:00 | PANTOPRAZOLE SODIUM | [facility] | + + + + | 2022-12-19 00:00 | AMOXICILLIN | [facility] | + + + + | 2022-12-21 00:00 | aspirin 81 mg delayed | [facility] [place] | | | release oral tablet | [facility] | + + + + | 2022-12-21 00:00 | aspirin 81 mg delayed | Outpatient Therapy at | | | release oral tablet | [facility] | + + + + | 2022-12-19 00:00 | PRAZOSIN HCL | [facility] | + + + + | 2022-12-19 00:00 | RANITIDINE HCL | [facility] | + + + + | 2022-12-24 00:00 | venlafaxine 100 mg oral | [facility] [place] | | | tablet | [facility] | + + + + | 2023-02-26 00:00 | venlafaxine 100 mg oral | Outpatient Therapy at | | | tablet | [facility] | + + + + | 2022-12-19 00:00 | ESCITALOPRAM OXALATE | [facility] | + + + + | 2022-06-30 00:00 | Drug or medicament | [facility] [place] | | | (substance) | [facility] | + + + + | 2022-06-30 00:00 | Drug or medicament | Outpatient Therapy at | | | (substance) | [facility] | + + + + | 2022-07-07 00:00 | Drug or medicament | [facility] | | | (substance) | [facility] | + + + + | 2022-07-07 00:00 | Drug or medicament | Outpatient Therapy at | | | (substance) | [facility] | + + + + | 2022-12-24 00:00 | Drug or medicament | [facility] | | | (substance) | [facility] | + + + + | 2023-02-26 00:00 | Drug or medicament | Outpatient Therapy at | | | (substance) | [facility] | + + + + | 2022-12-19 00:00 | CAPSAICIN | [facility] | + + + + | 2022-12-19 00:00 | VENLAFAXINE HCL | [facility] | + + + + | 2019-06-14 00:00 | CYCLOBENZAPRINE HCL | [facility] | + + + + | 2022-12-19 00:00 | TRAZODONE HCL | [facility] | + + + + | 2022-12-19 00:00 | PROMETHAZINE HCL | [facility] | + + + + | 2022-12-19 00:00 | hydrOXYzine PAMOATE | [facility] | + + + + Problems + + + + | date | description | facility | + + + + | 2019-05-27 00:00 | Urinary tract infection | [facility] | + + + + | 2019-05-27 00:00 | Cough | [facility] | + + + + | 2019-06-11 00:00 | Depression | [facility] | + + + + | 2019-06-14 00:00 | Concussion | [facility] | + + + + | 2020-05-11 00:00 | Bug bite | [facility] | + + + + | 2021-01-04 00:00 | Cholelithiasis | [facility] | + + + + | 2021-01-04 00:00 | Abdominal pain | [facility] | + + + + | 2022-10-30 13:06 | ENCOUNTER FOR SUPRVSN OF | [facility] | | | NORMAL , FIRST | | | | TRIMESTER | | + + + + | 2022-10-30 13:06 | LESS THAN 8 WEEKS | [facility] | | | GESTATION OF | | + + + + | 2022-11-23 15:40 | WITH | [facility] | | | INCONCLUSIVE | | | | VIABILITY, FETUS 1 | | + + + + | 2022-12-08 12:50 | WITH | [facility] | | | INCONCLUSIVE | | | | VIABILITY, FETUS 1 | | + + + + | 2022-12-19 00:00 | Vaginal bleeding during | [facility] | | | | | + + + + | 2022-12-19 20:12 | HEMORRHAGE IN EARLY | [facility] | | | , UNSPECIFIED | | + + + + | 2022-12-19 20:12 | 14 WEEKS GESTATION OF | [facility] | | | | | + + + + | 2022-12-19 20:12 | OTHER ASSISTED (CURRENT) | [facility] | | | DRUG THERAPY | | + + + + | 2022-12-19 20:12 | ALLERGY STATUS TO OTHER | [facility] | | | ANTIBIOTIC AGENTS STATUS | | + + + + | 2022-12-23 14:03:31 | Morbid (severe) obesity | [facility] | | | due to excess calories | [facility] | + + + + | 2022-12-23 14:03:31 | Anesthesia of skin | [facility] | | | | [facility] | + + + + | 2022-12-23 14:03:31 | Paresthesia of skin | [facility] | | | | [facility] | + + + + | 2022-12-23 14:03:31 | 15 weeks gestation of | [facility] | | | | [facility] | + + + + | 2022-12-23 14:03:31 | Body mass index (BMI) | [facility] | | | 45.0-49.9, adult | [facility] | + + + + | 2023-01-26 13:46 | SUPERVISION OF OTHER HIGH | [facility] | | | RISK PREGNANCIES, SECOND | | | | TRIMESTER | | + + + + | 2023-01-26 13:46 | 20 WEEKS GESTATION OF | [facility] | | | | | + + + + | 2023-02-01 07:44 | FATTY (CHANGE OF) LIVER, | [facility] | | | NOT ELSEWHERE CLASSIFIED | | + + + + | 2023-02-01 07:44 | DISEASES OF THE DGSTV SYS | [facility] | | | COMP , SECOND T | | + + + + | 2023-02-01 07:44 | ABNORMAL LEVELS OF OTHER | [facility] | | | SERUM ENZYMES | | + + + + | 2023-02-01 07:44 | ENCNTR FOR SUPRVSN OF | [facility] | | | NORMAL PREG, UNSP, | | + + + + | 2023-02-25 09:23:25 | Anesthesia of skin | [facility] | | | | | + + + + | 2023-02-25 09:23:25 | Paresthesia of skin | [facility] | | | | | + + + + | 2023-03-10 10:00 | SUPERVISION OF OTHER HIGH | [facility] | | | RISK PREGNANCI | | + + + + | 2023-03-10 10:00 | OBESITY COMPLICATING | [facility] | | | , SECOND T | | + + + + | 2023-03-10 11:00 | GESTATIONAL DIABETES | [facility] | | | MELLITUS IN PREGNAN | | + + + + | 2023-03-10 14:49 | ANTEPARTUM HEMORRHAGE, | [facility] | | | UNSPECIFIED, UNSPECIFIED | | | | TRIMESTER | | + + + + | 2023-03-22 19:30 | SUPERVISION OF OTHER HIGH | [facility] | | | RISK PREGNANCIES, SECOND | | | | TRIMESTER | | + + + + | 2023-03-22 19:30 | OBESITY COMPLICATING | [facility] | | | , SECOND T | | + + + + | 2023-04-19 11:33 | SUPERVISION OF OTHER HIGH | [facility] | | | RISK PREGNANCI | | + + + + | 2023-04-19 11:33 | SUPERVISION OF OTHER HIGH | [facility] | | | RISK PREGNANCIES, SECOND | | | | TRIMESTER | | + + + + | 2023-04-19 11:33 | OBESITY COMPLICATING | [facility] | | | , SECOND T | | + + + + | 2023-04-19 11:33 | 33 WEEKS GESTATION OF | [facility] | | | | | + + + + | 2023-04-19 12:00 | SUPERVISION OF OTHER HIGH | [facility] | | | RISK PREGNANCI | | + + + + | 2023-04-19 12:00 | OBESITY COMPLICATING | [facility] | | | , SECOND T | | + + + + | 2023-05-17 12:00 | SUPERVISION OF OTHER HIGH | [facility] | | | RISK PREGNANCI | | + + + + | 2023-05-17 12:00 | OBESITY COMPLICATING | [facility] | | | , SECOND T | | + + + + | 2023-05-20 12:49 | SUPERVISION OF OTHER HIGH | [facility] | | | RISK PREGNANCIES, SECOND | | | | TRIMESTER | | + + + + | 2023-05-20 12:49 | OBESITY COMPLICATING | [facility] | | | , SECOND TRIMESTER | | | | | | + + + + Procedures No information. Results/Labs +--------+--------+ +---------+--------+---------+ | test | date | facility | value | unit | notes | +--------+--------+ +---------+--------+---------+ + + | Result panel 1 | + + + + + +-------+ + + | | 2022-12-19 | [facility] | 9.8 | (missing) | (missing) | | (unavailable | 20:35:08 | [facility] | | | | + + + +-------+ + + + + | Result panel 2 | + + + + + +--------+ + + | | 2022-12-19 | [facility] | 67.8 | (missing) | (missing) | | (unavailable | 20:35:08 | [facility] | | | | + + + +--------+ + + + + | Result panel 3 | + + + + + +--------+ + + | | 2022-12-19 | [facility] | 25.8 | (missing) | (missing) | | (unavailable | 20:35:08 | [facility] | | | | + + + +--------+ + + + + | Result panel 4 | + + + + + +-------+ + + | | 2022-12-19 | [facility] | 5.6 | (missing) | (missing) | | (unavailable | 20:35:08 | [facility] | | | | + + + +-------+ + + + + | Result panel 5 | + + + + + +-------+ + + | | 2022-12-19 | [facility] | 0.6 | (missing) | (missing) | | (unavailable | 20:35:08 | [facility] | | | | + + + +-------+ + + + + | Result panel 6 | + + + + + +-------+ + + | | 2022-12-19 | [facility] | 0.2 | (missing) | (missing) | | (unavailable | 20:35:08 | [facility] | | | | + + + +-------+ + + + + | Result panel 7 | + + + + + +-----+ + + | | 2022-12-19 | [facility] | A | (missing) | (missing) | | (unavailable | 20:35:08 | [facility] | | | | + + + +-----+ + + + + | Result panel 8 | + + + + + + + + + | | 2022-12-19 | [facility] | POSITIVE | (missing) | (missing) | | (unavailable | 20:35:08 | [facility] | | | | + + + + + + + + + | Result panel 9 | + + + + + +--------+ + + | | 2022-12-19 | [facility] | 4.20 | (missing) | (missing) | | (unavailable | 20:35:08 | [facility] | | | | + + + +--------+ + + + + | Result panel 10 | + + + + + +--------+ + + | | 2022-12-19 | [facility] | 12.2 | (missing) | (missing) | | (unavailable | 20:35:08 | [facility] | | | | + + + +--------+ + + + + | Result panel 11 | + + + + + +--------+ + + | | 2022-12-19 | [facility] | 36.5 | (missing) | (missing) | | (unavailable | 20:35:08 | [facility] | | | | + + + +--------+ + + + + | Result panel 12 | + + + + + +--------+ + + | | 2022-12-19 | [facility] | 86.8 | (missing) | (missing) | | (unavailable | 20:35:08 | [facility] | | | | + + + +--------+ + + + + | Result panel 13 | + + + + + +--------+ + + | | 2022-12-19 | [facility] | 29.1 | (missing) | (missing) | | (unavailable | 20:35:08 | [facility] | | | | + + + +--------+ + + + + | Result panel 14 | + + + + + +--------+ + + | | 2022-12-19 | [facility] | 33.6 | (missing) | (missing) | | (unavailable | 20:35:08 | [facility] | | | | + + + +--------+ + + + + | Result panel 15 | + + + + + +--------+ + + | | 2022-12-19 | [facility] | 14.0 | (missing) | (missing) | | (unavailable | 20:35:08 | [facility] | | | | + + + +--------+ + + + + | Result panel 16 | + + + + + +-------+ + + | | 2022-12-19 | [facility] | 244 | (missing) | (missing) | | (unavailable | 20:35:08 | [facility] | | | | + + + +-------+ + + Social History + + + + | date | description | facility | + + + + | 2022-12-23 00:00 | Never smoked tobacco | [facility] | | | | [facility] | + + + + | 2022-12-23 00:00 | Never smoked tobacco | Outpatient Therapy at | | | | [facility] | + + + + Vital Signs + + + +---------+ | date | measurement | value | units | + + + +---------+ | 2022-12-19 00:00 | BMI | 49.6 | kg/m2 | + + + +---------+ | 2022-12-19 00:00 | BP_diastolic | 82 | mmHg | + + + +---------+ | 2022-12-19 00:00 | BP_systolic | 146 | mmHg | + + + +---------+ | 2022-12-19 00:00 | heart_rate | 102 | /min | + + + +---------+ | 2022-12-19 00:00 | height_metric | 152.4 | cm | + + + +---------+ | 2022-12-19 00:00 | height_standard | 60 | in | + + + +---------+ | 2022-12-19 00:00 | o2_saturation | 97 | % | + + + +---------+ | 2022-12-19 00:00 | respiration_rate | 18 | /min | + + + +---------+ | 2022-12-19 00:00 | temperature_metric | 36.89 | C | | | | | | + + + +---------+ | 2022-12-19 00:00 | | 98.4 | F | | | temperature_standar | | | | | d | | | + + + +---------+ | 2022-12-19 00:00 | weight_metric | 115.1 | kg | + + + +---------+ | 2022-12-19 00:00 | weight_standard | 253.75 | lb | + + + +---------+ | 2022-12-23 00:00 | BMI | 49.49 | kg/m2 | + + + +---------+ | 2022-12-23 00:00 | BP_diastolic | 84 | mmHg | + + + +---------+ | 2022-12-23 00:00 | BP_systolic | 118 | mmHg | + + + +---------+ | 2022-12-23 00:00 | heart_rate | 76 | /min | + + + +---------+ | 2022-12-23 00:00 | height_metric | 152.4 | cm | + + + +---------+ | 2022-12-23 00:00 | height_standard | 60 | in | + + + +---------+ | 2022-12-23 00:00 | weight_metric | 114.94 | kg | + + + +---------+ | 2022-12-23 00:00 | weight_standard | 253.4 | lb | + + + +---------+"
--- OUTSIDE RECORDS SUMMARY | ~2023-06-23 | XMS | Continuity of Care Document ---
Demographics + + + | Address | [facility] [address] | | | [place] [address] | + + + | Preferred Language | Unknown | + + + | Marital Status | | + + + | Methodist Affiliation | Unknown | + + + | Race | White | + + + | Ethnic Group | Not or | + + + Author + + + | Author | [facility] | + + + | Organization | [facility] | + + + | Address | [address] | | | [place] [address] | + + + | Phone | | + + + Care Team Providers + + + + | Care Formstone Fitter Name | Role | Phone | + [...] (no severity) | | | | at [place] | | | | | | [facility] [...] (no severity) | | | | [facility] [place] | | | | | | [facility] [...] (no severity) | | | | [facility] [place] | | | | | | [facility] [...] (no severity) | | | | [facility] [place] | | | | | | [facility] [...] (no severity) | | | | [facility] [place] | | | | | | [facility] [...] (no severity) | | | | [facility] [place] | | | | | | [facility] [...] (no severity) | | | | [facility] [place] | | | | | | [facility] [...] (no severity) | | | | at [place] | | | | | | [facility] [...] | (no date) | NO ALLERGY | [facility] | (no reaction) | (no severity) | | | INFORMATION ON | Medical Center | | | | | FILE | Hospital | | | + + + + + + | (no date) | DOXYCYCLINE | [facility] | (no reaction) | (no severity) | [...] | (no date) | NO KNOWN | [facility] | (no reaction) | (no severity) | | | ALLERGIES | Medical Center | | | | | | Hospital | | | + + + + + + Encounters No information. Functional Status No information. Immunizations No information. Medications + + + + | date | description | facility | + + + + | 2021-01-04 00:00 | ONDANSETRON HCL | [facility] | + + + + | 2014-02-02 00:00 | NITROFURANTOIN | [facility] | | | MACROCRYSTAL | | + + + + | 2022-12-19 00:00 | OMEPRAZOLE | [facility] | + + + + | 2022-12-24 00:00 | citalopram 10 mg (as | [facility] [place] | | | citalopram hbr 12.49 mg) | [facility] | | | oral tablet | | + + + + | 2023-02-26 00:00 | citalopram 10 mg (as | Outpatient Therapy at | | | citalopram hbr 12.49 mg) | [facility] | | | oral tablet | | + + + + | 2021-01-04 00:00 | PANTOPRAZOLE SODIUM | [facility] | + + + + | 2022-12-19 00:00 | AMOXICILLIN | [facility] | + + + + | 2022-12-21 00:00 | aspirin 81 mg delayed | [facility] [place] | | | release oral tablet | [facility] | + + + + | 2022-12-21 00:00 | aspirin 81 mg delayed | Outpatient Therapy at | | | release oral tablet | [facility] | + + + + | 2022-12-19 00:00 | PRAZOSIN HCL | [facility] | + + + + | 2022-12-19 00:00 | RANITIDINE HCL | [facility] | + + + + | 2022-12-24 00:00 | venlafaxine 100 mg oral | [facility] [place] | | | tablet | [facility] | + + + + | 2023-02-26 00:00 | venlafaxine 100 mg oral | Outpatient Therapy at | | | tablet | [facility] | + + + + | 2022-12-19 00:00 | ESCITALOPRAM OXALATE | [facility] | + + + + | 2022-06-30 00:00 | Drug or medicament | [facility] [place] | | | (substance) | [facility] | + + + + | 2022-06-30 00:00 | Drug or medicament | Outpatient Therapy at | | | (substance) | [facility] | + + + + | 2022-07-07 00:00 | Drug or medicament | [facility] | | | (substance) | [facility] | + + + + | 2022-07-07 00:00 | Drug or medicament | Outpatient Therapy at | | | (substance) | [facility] | + + + + | 2022-12-24 00:00 | Drug or medicament | [facility] | | | (substance) | [facility] | + + + + | 2023-02-26 00:00 | Drug or medicament | Outpatient Therapy at | | | (substance) | [facility] | + + + + | 2022-12-19 00:00 | CAPSAICIN | [facility] | + + + + | 2022-12-19 00:00 | VENLAFAXINE HCL | [facility] | + + + + | 2019-06-14 00:00 | CYCLOBENZAPRINE HCL | [facility] | + + + + | 2022-12-19 00:00 | TRAZODONE HCL | [facility] | + + + + | 2022-12-19 00:00 | PROMETHAZINE HCL | [facility] | + + + + | 2022-12-19 00:00 | hydrOXYzine PAMOATE | [facility] | + + + + Problems + + + + | date | description | facility | + + + + | 2019-05-27 00:00 | Urinary tract infection | [facility] | + + + + | 2019-05-27 00:00 | Cough | [facility] | + + + + | 2019-06-11 00:00 | Depression | [facility] | + + + + | 2019-06-14 00:00 | Concussion | [facility] | + + + + | 2020-05-11 00:00 | Bug bite | [facility] | + + + + | 2021-01-04 00:00 | Cholelithiasis | [facility] | + + + + | 2021-01-04 00:00 | Abdominal pain | [facility] | + + + + [...] 2022-12-19 00:00 | Vaginal bleeding during | [facility] | | | | | + + + + | 2022-12-19 20:12 | HEMORRHAGE IN EARLY | [facility] | | | , UNSPECIFIED | | + + + + | 2022-12-19 20:12 | 14 WEEKS GESTATION OF | [facility] | | | | | + + + + | 2022-12-19 20:12 | OTHER SENIOR LIVING (CURRENT) | [facility] | | | DRUG THERAPY | | + + + + | 2022-12-19 20:12 | ALLERGY STATUS TO OTHER | [facility] | | | ANTIBIOTIC AGENTS STATUS | | + + + + | 2022-12-23 14:03:31 | Morbid (severe) obesity | [facility] | | | due to excess calories | [facility] | + + + + | 2022-12-23 14:03:31 | Anesthesia of skin | [facility] | | | | [facility] | + + + + | 2022-12-23 14:03:31 | Paresthesia of skin | [facility] | | | | [facility] | + + + + | 2022-12-23 14:03:31 | 15 weeks gestation of | [facility] | | | | [facility] | + + + + | 2022-12-23 14:03:31 | Body mass index (BMI) | [facility] | | | 45.0-49.9, adult | [facility] | + + + + | 2023-01-26 [...] 2023-02-25 09:23:25 | Anesthesia of skin | [facility] | | | | | + + + + | 2023-02-25 09:23:25 | Paresthesia of skin | [facility] | | | | | [...] Never smoked tobacco | [facility] [place] | | | | [facility] [...]
[2023-06-23] MEDS ORDERED: LABETALOL HCL100 MG PO (04:51)
[2023-06-23 04:57] LABS: BASOPHILS 0.7 % (0-2); EOSINOPHILS 1.6 % (0-6); HEMATOCRIT 40.8 % (35.0-50.0); HEMOGLOBIN 13.5 g/dL (12.0-18.0); MCH 28.2 (27-36); MCV 85.4 fl (81-99); MONOCYTES 6.5 % (0-12); NEUTROPHILS 47.2 % (39-80); PLATELET COUNT 424 K/uL (140-440); RBC 4.78 M/ul (4.3-5.7); RDW 14.7 (10.5-15.0)
[2023-06-23 06:18] LABS: BILIRUBIN, URINE NEGATIVE (negative); BLOOD/HGB, URINE LARGE (Negative); KETONE, URINE NEGATIVE (Negative); LEUK ESTERASE, URINE MODERATE (negative); NITRITE, URINE NEGATIVE (negative); PH, URINE 6.5 (5-7)
[2023-06-23 06:23] LABS: EPITHELIAL CELLS, URINE SQUAMOUS 1+ /lpf (0-1+)
[2023-06-23 06:24] LABS: BACTERIA, URINE RARE /hpf (negative); CASTS, URINE NONE SEEN \\lpf; CRYSTALS, URINE NONE SEEN (0-1+); RED BLOOD CELLS, URINE >50 /hpf (0-5)
[2023-06-23 06:25] LABS: REFLEX CULTURE, URINE No (No)
[2023-06-23 06:27] LABS: ALBUMIN 3.1 g/dL (3.4-5.0); ALBUMIN/GLOBULIN RATIO 0.7 (1.1-2.4); ANION GAP 15.5 (7-21); BILIRUBIN, TOTAL 0.3 ng/dL (0.2-1.0); BUN/CREATININE RATIO 10.86 (6.0-28.6); CALCIUM 9.4 mg/dL (8.5-10.1); CREATININE, SERUM 0.92 mg/dL (0.55-1.02); POTASSIUM 3.5 mmol/L (3.5-5.1); PROTEIN, TOTAL 7.5 g/dL (6.4-8.2)
[2023-06-23] MEDS ORDERED: CEPHALEXIN500 MG PO (06:32)
[2023-06-23 06:57] VITALS: BP 118/68
== END 2023-06-23 06:46 | disposition home or self-care (01) ==
LOC: ED 04:26
PROVIDERS: Internal Medicine
DX: O86.20 Urinary tract infection following delivery, unspecified (principal); N39.0 Urinary tract infection, site not specified; F31.9 Bipolar disorder, unspecified; Z79.899 Other long term (current) drug therapy; Z88.1 Allergy status to other antibiotic agents
CPT/HCPCS: 36415; 74177; 80053; 81001; 83690; 84703; 85025; 87088; 96375; 99284-25; A9270; J1885; J2405; J3010; J7121; Q9967

== ENCOUNTER 2024-06-02 07:01 | Day surgery (SDC) | payer OTHER ==
--- NOTE | 2024-05-29 12:44 | NUR ---
PHONE CALL TO PT AT THE FOLLOWING NUMBER [phone] NO ANSWER LEFT MESSAGE.
[~2024-06-02] VITALS: Ht 152.4 cm; Wt 110.9 kg
[~2024-06-02 07:01] MED LIST changes: +CEFAZOLIN SODIUM 2 GM/20 ML SYR IV SCH; +CEPHALEXIN500 MG PO; +IBLOOD GLUCOSE TEST STRIP 1 EA TEST VI PRN; +LABETALOL HCL100 MG PO; +LACTATED RINGER'S 1,000 ML IV SCH; +LIDOCAINE HCL 1% 5 ML SDV INJ ONE; +VIT D3-VIT K21 EACH PO
[2024-06-02 07:16] VITALS: BP 141/78
--- NOTE | 2024-06-02 08:01 | NUR ---
PRE-OP VISIT. PT EXHIBITING NO SIGNS OF ANXIETY, DEMOSTRATED STRONG OLAF RESOURCES. TREE CHIPPER PROVIDED SUPPORTIVE PRESENCE, HOSPITALITY, PRAYER. PT EXPRESSED APPRECIATION.
[2024-06-02] MEDS ORDERED: ondansetron HCL 4 MG/2 ML VIAL ONE (08:41)
[2024-06-02] MEDS ORDERED: propofoL 200 MG/20 ML VIAL ONE (08:41)
[2024-06-02] MEDS ORDERED: LIDOCAINE HCL 0.5% 50 ML SDV ONE (08:41)
[2024-06-02] MEDS ORDERED: DEXAMETHASONE SOD PHOS 4 MG/ML VIAL ONE ×2 (08:41→08:42)
[2024-06-02] MEDS ORDERED: KETOROLAC TROMETHAMINE 30 MG/ML VIAL ONE (08:41)
[2024-06-02] MEDS ORDERED: MIDAZOLAM HCL 2 MG/2 ML VIAL ONE (08:41)
[2024-06-02] MEDS ORDERED: fentaNYL citrate 100 MCG/2 ML VIAL ONE (09:24)
--- NOTE | 2024-06-02 09:51 | NUR ---
2846 PT USED CALL LIGHT TO BRING NURSE INTO ROOM. PT STATES THAT SHE HAS BEEN 'WAITING FOREVER'. UPDATED WAIT TIME GIVEN TO PATIENT, PT SEEMS UNDERSTANDING.
[2024-06-02] MEDS ORDERED: HYDROCODONE/ACETA 5/325 TAB PO PRN (10:45)
[2024-06-02] MEDS ORDERED: CELECOXIB200 MG PO (10:46)
[2024-06-02] MEDS ORDERED: HYDROCODON-ACE1 EA10 PO (10:47)
--- NOTE | 2024-06-02 11:25 | OR ---
[facility] [address], [place] [address] Signed DATE OF OPERATION: 06/02/2024 SURGEON: Elisha Lowe MD PREOPERATIVE DIAGNOSIS: Carpal tunnel syndrome, right. POSTOPERATIVE DIAGNOSIS: Carpal tunnel syndrome, right. PROCEDURE PERFORMED: Carpal tunnel release, right. INTERNET SALES MANAGER: None. ANESTHESIA: Prosper block. TOURNIQUET TIME: 15 minutes. BRIEF HISTORY: Cammie is a 28-year-old female with progressive worsening of numbness and tingling in her hand. Nerve conduction studies were consistent with significant carpal tunnel. Risks, benefits, and alternatives were discussed with her of surgery and she wished to proceed. DESCRIPTION OF PROCEDURE: Once consent was obtained, she was taken to the operating room. After adequate anesthesia, she was left on the day surgery bed and hand table was brought in. The arm was prepped and draped in a standard sterile fashion. A 1.5 cm incision was made transversely in the distal wrist crease. This was carried through the skin and subcutaneous tissue. She had a fairly robust palmaris longus and this was retracted and protected. The transverse carpal ligament was identified under loupe magnification. It was then dissected free of overlying soft tissue distally and proximally. The ligament was then released again under loupe magnification, proximally a cm and a half and distally to the distal extent. This was palpated with a [place] and found to be completely released. The wound was copiously irrigated with normal saline, closed with 3-0 nylon. The wound was infiltrated with 7 mL of 0.25% plain Marcaine. The wound was dressed with Electronically Signed By: ELISHA LOWE MD 06/02/24 1125 PATIENT NAME: CAMMIE LOWE OPERATIVE REPORT DATE OF : [birth year] REPORT #: [id number] PHYSICIAN: ELISHA LOWE MD PCP: LIZBET MG PA-C REPORT IS CONFIDENTIAL AND NOT TO BE RELEASED WITHOUT AUTHORIZATION [facility] [address], [place] [address] Signed bacitracin, Adaptic, 4 x 8s, and gauze. She tolerated the procedure well. All sponge, needle, and instrument counts were correct. Elisha Lowe MD BA/MODL /[id number] Copies: ~ Electronically Signed By: ELISHA LOWE MD 06/02/24 1125 PATIENT NAME: CAMMIE LOWE OPERATIVE REPORT DATE OF : [birth year] REPORT #: [id number] PHYSICIAN: ELISHA LOWE MD PCP: LIZBET MG PA-C REPORT IS CONFIDENTIAL AND NOT TO BE RELEASED WITHOUT AUTHORIZATION
--- NOTE | 2024-06-02 11:29 | NUR ---
06/02/24 Lizzie Ahmadi 1046- PT ARRIVES TO PACU, SEMI RUSH POSITION. BREATHING EVEN AND NON LABORED, O2 AT 6L PER MASK. LR INFUSING TO LH IV. DRESSING IN PLACE TO RIGHT WRIST/HAND. ICE PLACED TO SURGICAL SITE. ABD SOFT, NON DISTENDED. ALL MONITORS IN PLACE. 1058- PT WAKES TO VERBAL STIMULI, DENIES PAIN OR NAUSEA. MOVED TO ROOM AIR. PT VERY DROWSY, CONTINUE TO MONITOR. 1115- PT WAKES EASILY TO VERBAL STIMULI. WHILE RESTING PT SATS DROP TO 82% ON ROOM AIR BUT IMPROVE WITHOUT DIRECTION. PT DOES NOT BECOME APNEIC, PT SNORES AND SOUNDS LIKE A TIGHT AIRWAY. PT DENIES SLEEP APNEA OR HAVING A SLEEP STUDY. LETTER SENT TO PCP.
[2024-06-02 11:47] VITALS: BP 127/81
[2024-06-02] MEDS ORDERED: CELECOXIB 200 MG CAP PO SCH (17:00)
== END 2024-06-02 12:10 | disposition home or self-care (01) ==
LOC: DS 07:01
PROVIDERS: ATTEND Specialist
PROC: 01N50ZZ Release Median Nerve, Open Approach (ICD-10-PCS; principal; 2024-06-02 09:45)
DX: G56.03 Carpal tunnel syndrome, bilateral upper limbs (principal); E66.01 Morbid (severe) obesity due to excess calories; Z68.42 Body mass index [BMI] 45.0-49.9, adult; Z88.1 Allergy status to other antibiotic agents
CPT/HCPCS: J0690; J1100; J1885; J2250; J2405; J2704; J3010; J7121

== ENCOUNTER 2024-08-22 00:20 | Emergency (ER) | payer OTHER ==
[~2024-08-22] VITALS: Ht 152.4 cm; Wt 122.0 kg
[~2024-08-22 00:20] MED LIST changes: -CEFAZOLIN SODIUM 2 GM/20 ML SYR IV SCH; +CELECOXIB200 MG PO; +HYDROCODON-ACE1 EA10 PO; -IBLOOD GLUCOSE TEST STRIP 1 EA TEST VI PRN; -LACTATED RINGER'S 1,000 ML IV SCH; -LIDOCAINE HCL 1% 5 ML SDV INJ ONE
[2024-08-22] MEDS ORDERED: diazePAM 10 MG/2 ML SYR IM ONE (00:45)
[2024-08-22] MEDS ORDERED: KETOROLAC TROMETHAMINE 60 MG/2 ML VIAL IM ONE (01:00)
[2024-08-22] MEDS ORDERED: CYCLOBENZAPRINE10 MG PO (02:09)
[2024-08-22] MEDS ORDERED: CYCLOBENZAPRINE HCL 10 MG HOME.PACK PO ONE (02:15)
[2024-08-22] MEDS ORDERED: methylPREDNISolone 4 MG HOME.PACK PO ONE (02:15)
[2024-08-22 02:39] VITALS: BP 143/86
== END 2024-08-22 02:42 | disposition home or self-care (01) ==
LOC: ED 00:20
DX: S39.012A Strain of muscle, fascia and tendon of lower back, initial encounter (principal); X58.XXXA Exposure to other specified factors, initial encounter; F31.9 Bipolar disorder, unspecified; Z88.1 Allergy status to other antibiotic agents; Z79.899 Other long term (current) drug therapy
CPT/HCPCS: 72100; 84703; 96372; 99283; J1885; J3360